=== PATIENT | male | born 1955 | race Caucasian/White ===

== ENCOUNTER 2018-09-14 08:56 | Emergency (ER) | payer OTHER ==
[~2018-09-14] VITALS: Ht 185.4 cm; Wt 114.3 kg
[2018-09-14 08:56] VITALS: BP 152/83
[2018-09-14] MEDS ORDERED: DIPHTH,PERTUSS(ACELL),TET TOX 0.5 ML DISP.SYRIN. VAX IM ONE (09:15)
--- NOTE | 2018-09-14 09:26 | PHYS DOC ---
Past History Past Medical History: Other (Colon and bladder cancer) Smoking: Quit Greater Than 1 Year Alcohol Use: None Drug Use: None Adult General Chief Complaint Chief Complaint: HEAD INJURY/TRAUMA HPI HPI Patient is a 63 year old male who presents with complaining of head injury. Patient states he was on top of the ladder and hit his head against a board with 2 nails on it at the ceiling and had laceration of left side of his scalp without loss of consciousness or other injuries. Patient complaining of mild headache and rated his pain 2 or 3. Patient denies focal neurodeficit, blurred vision, nausea and vomiting. Patient is not sure about the last tetanus immunization. Review of Systems Review of Systems Constitutional: Denies fever or chills [] Eyes: Denies change in visual acuity, redness, or eye pain [] HENT: Denies nasal congestion or sore throat [] Respiratory: Denies cough or shortness of breath [] Cardiovascular: No additional information not addressed in HPI [] GI: Denies abdominal pain, nausea, vomiting, bloody stools or diarrhea [] : Denies dysuria or hematuria [] Musculoskeletal: Denies back pain or joint pain [] Integument: Denies rash or skin lesions, reports laceration [] Neurologic: Denies headache, focal weakness or sensory changes [] Endocrine: Denies polyuria or polydipsia [] All other systems were reviewed and found to be within normal limits, except as documented in this note. Current Medications Current Medications Current Medications Medications (Trade) Dose Ordered Sig/Colleen Start Time Stop Time Status Last Admin Dose Admin Diphtheria/ Tetanus/Acell Pertussis (Boostrix) 0.5 ml ONCE ONCE 09/14/18 09:15 09/14/18 09:16 DC Allergies Allergies Allergies Coded Allergies Type Severity Reaction Last Updated Verified No Known Drug Allergies 09/14/18 No Physical Exam Physical Exam Constitutional: Well developed, well nourished, mild acute distress, non-toxic appearance. [] HENT: Normocephalic, 2 area of superficial and longitudinal laceration in left parietal as 3 and 2 cm linear laceration, bilateral external ears normal, oropharynx moist, no oral exudates, nose normal. [] Eyes: PERRLA, EOMI, conjunctiva normal, no discharge. [] Neck: Normal range of motion, no tenderness, supple, no stridor. [] Cardiovascular:Heart rate regular rhythm, no murmur [] Lungs & Thorax: Bilateral breath sounds clear to auscultation [] Skin: Warm, dry, no erythema, no rash. [] Back: No tenderness, no CVA tenderness. [] Extremities: No tenderness, no cyanosis, no clubbing, ROM intact, no edema. [] Neurologic: Alert and oriented X 3, normal motor function, normal sensory function, no focal deficits noted. [] Psychologic: Affect normal, judgement normal, mood normal. [] EKG EKG [] Radiology/Procedures Radiology/Procedures [] Course & Med Decision Making Course & Med Decision Making Evaluation of patient in ER showed 63-year-old male patient with superficial laceration of the scalp that was repaired with Dermabond. Tdap was as given in ER. Dragon Disclaimer Dragon Disclaimer This electronic medical record was generated, in whole or in part, using a voice recognition dictation system. Departure Departure: Impression: Primary Impression: Head injury Additional Impression: Superficial laceration of scalp Disposition: 01 HOME, SELF-CARE (at 0 [phone]) Condition: IMPROVED Referrals: NON,STAFF (PCP) Patient Instructions: Laceration Care, Adult, Tissue Adhesive Wound Care Additional Instructions: Keep wound clean and dry Follow-up with your primary care physician in 3-5 days Return to ER if not getting better Laceration Repair Lac Repair Indication: Scalp lacerations Procedure: The patient was placed in the appropriate position to superficial laceration of left parietal scalp was clean and repaired with Dermabond with good closure. Total repaired wound length: 5 cm. Other Items: None The patient tolerated the procedure well. Complications: None. Problem Qualifiers SANDEE ERICKSON MD Sep 14, 2018 09:26
== END 2018-09-14 09:30 | disposition home or self-care (01) ==
LOC: ER 08:56
DX: S01.01XA Laceration without foreign body of scalp, initial encounter (principal); Z87.891 Personal history of nicotine dependence; W22.01XA Walked into wall, initial encounter; Y93.89 Activity, other specified; Y92.89 Other specified places as the place of occurrence of the external cause; Y99.8 Other external cause status
CPT/HCPCS: 12002; 90471; 90715; 99283-25